=== PATIENT | female | born 1950 | race Caucasian/White ===

== ENCOUNTER 2016-11-06 18:40 | Inpatient (IN) | payer MEDICARE, BC ==
[~2016-11-06] VITALS: Ht 165.1 cm; Wt 66.0 kg
[~2016-11-06 18:40] MED LIST: ONDANSETRON HCL 4 MG/2 ML VIAL IV PUSH ONE; PROPOFOL 200 MG/20 ML AMP IV ONE; ePHEDrine/NS 50 MG/5 ML SYR IV ONE
[2016-11-06 18:41] VITALS: BP 144/67; PULSE 84; RESP 16; TEMP 98.1; O2SAT 98
[2016-11-06] MEDS ORDERED: GENTAMICIN SULFATE 80 MG/2 ML VIAL ONE (19:39)
--- NOTE | 2016-11-06 19:47 | PD ---
HPI Chief Complaint: Hip Injury Time Seen by Provider: 19:38 Travel History International Travel<30 days: No Contact w/Intl Traveler<30days: No Traveled to known affect area: No History of Present Illness HPI 65-year-old female presents after being sent by her orthopedist Dr. Granado for evaluation of a right hip fracture. The patient suffered a mechanical trip and fall 2 days ago and landed on her right hip. There is no other injury. Since then she has had soreness in her right hip which is worse with movement. She was seen by her orthopedist today, Dr. Granado, and she underwent x-ray imaging which apparently showed a proximal right femur fracture. Dr. Granado told her to come to the emergency room for preoperative preparation. The patient last had a meal at 1 PM today. She denies any significant past medical history. Her primary care physician is Dr. [place]. She has no other complaints at this time. PFS Past Medical History Medical History: Denies Significant Hx Social History Alcohol Use: No Tobacco Use: No Substance Use: No Allergies-Medications (Allergen,Severity, Reaction): Coded Allergies: Penicillin (Verified Allergy, Unknown, 11/06/16) Reported Meds & Prescriptions Reported Meds & Active Scripts Active No Active Prescriptions or Reported Medications Review of Systems Except as stated in HPI: all other systems reviewed are Neg Physical Exam Narrative GENERAL: Well-developed well-nourished female in no acute distress SKIN: Warm and dry. Orthopedic surgeons initials have been written on the right hip. HEAD: Atraumatic. Normocephalic. EYES: Pupils equal and round. No scleral icterus. No injection or drainage. ENT: No nasal bleeding or discharge. Mucous membranes pink and moist. CARDIOVASCULAR: Regular rate and rhythm. No murmur appreciated. RESPIRATORY: No accessory muscle use. Clear to auscultation. Breath sounds equal bilaterally. GASTROINTESTINAL: Abdomen soft, non-tender, nondistended. MUSCULOSKELETAL: No obvious deformities. The patient currently has both of her legs flexed at the knees. 2+ dorsalis pedis and posterior tibial pulses. NEUROLOGICAL: Awake and alert. No obvious cranial nerve deficits. Motor grossly within normal limits. Normal speech. Data Data Last Documented VS Vital Signs Date Time Temp Pulse Resp B/P Pulse Ox O2 Delivery O2 Flow Rate FiO2 11/06/16 18:41 98.1 84 16 144/67 98 Room Air Orders Gentamicin Inj (Gentamicin Inj) (11/06/16 19:39) Complete Blood Count With Diff (11/06/16 19:43) Basic Metabolic Panel (Bmp) (11/06/16 19:43) Act Partial Throm Time (Ptt) (11/06/16 19:43) Prothrombin Time / Inr (Pt) (11/06/16 19:43) Iv Access Insert/Monitor (11/06/16 19:43) Electrocardiogram (11/06/16 ) Admit Order (Ed Use Only) (11/06/16 20:24) Labs Laboratory Tests Test 11/06/16 20:05 White Blood Count 7.0 TH/MM3 Red Blood Count 4.42 MIL/MM3 Hemoglobin 14.4 GM/DL Hematocrit 41.7 % Mean Corpuscular Volume 94.4 FL Mean Corpuscular Hemoglobin 32.7 PG Mean Corpuscular Hemoglobin 34.6 % Concent Red Cell Distribution Width 12.8 % Platelet Count 206 TH/MM3 Mean Platelet Volume 7.9 FL Neutrophils (%) (Auto) 70.5 % Lymphocytes (%) (Auto) 19.7 % Monocytes (%) (Auto) 8.9 % Eosinophils (%) (Auto) 0.5 % Basophils (%) (Auto) 0.4 % Neutrophils # (Auto) 5.0 TH/MM3 Lymphocytes # (Auto) 1.4 TH/MM3 Monocytes # (Auto) 0.6 TH/MM3 Eosinophils # (Auto) 0.0 TH/MM3 Basophils # (Auto) 0.0 TH/MM3 CBC Comment DIFF FINAL Differential Comment Prothrombin Time 10.8 SEC Prothromb Time International 1.0 RATIO Ratio Activated Partial 25.9 SEC Thromboplast Time Sodium Level 139 MEQ/L Potassium Level 3.6 MEQ/L Chloride Level 102 MEQ/L Carbon Dioxide Level 27.4 MEQ/L Anion Gap 10 MEQ/L Blood Urea Nitrogen 18 MG/DL Creatinine 0.85 MG/DL Estimat Glomerular Filtration 67 ML/MIN Rate Random Glucose 91 MG/DL Calcium Level 9.1 MG/DL [facility] Medical Decision Making Medical Screen Exam Complete: Yes Emergency Medical Condition: Yes Medical Record Reviewed: Yes Differential Diagnosis Right hip fracture, dislocation, pubic rami fracture Narrative Course I attempted to call Dr. Granado's cell phone however it had a "do not disturb" function installed. Therefore he will be paged. 2025: Unable to get in contact with Dr. Granado, OR technicians are currently taking the patient to the OR. Therefore the decision was made to admit the patient to the hospitalist group at least for observation, discussed with Dr. Oliveira who is agreeable. The patient is declining any pain medication at this time. Diagnosis Primary Impression: Closed right hip fracture Qualified Code: S72.001A - Closed right hip fracture, initial encounter Admitting Information Admitting Physician Requests: Observation Scripts No Active Prescriptions or Reported Meds Mark Ramirez Nov 06, 2016 19:47
[2016-11-06] MEDS ORDERED: SODIUM CHLORIDE 0.9% FLUSH 5 ML FLUSH FLUSH PRN (20:30)
[2016-11-06] MEDS ORDERED: HYDROmorphone HCL PF 1 MG/ML VIAL IV PUSH PRN (20:30)
[2016-11-06] MEDS ORDERED: NALOXONE HCL 0.4 MG/ML AMP IV PRN ×2 (20:30→21:00)
[2016-11-06] MEDS ORDERED: ONDANSETRON HCL 4 MG/2 ML VIAL IVP PRN ×2 (20:30→21:00)
[2016-11-06] MEDS ORDERED: HYDROmorphone HCL PF 2 MG/ML VIAL ONE (20:36)
[2016-11-06] MEDS ORDERED: MIDAZOLAM HCL 2 MG/2 ML VIAL ONE (20:36)
[2016-11-06] MEDS ORDERED: ceFAZolin 2 GM PREMIX 50 ML ONE (20:39)
[2016-11-06 20:42] LABS: BASOPHIL % 0.4 % (0.0-2.0); EOSINOPHIL % 0.5 % (0.0-4.0); HEMATOCRIT 41.7 % (35.0-46.0); HEMO FLAGS DIFF FINAL; LYMPH % 19.7 % (9.0-44.0); LYMPHOCYTE # 1.4 TH/MM3 (1.0-4.8); MEAN CELL VOLUME 94.4 FL (80.0-100.0); MEAN CORPUSCULAR HEMOGLOBIN 32.7 PG (27.0-34.0); MEAN CORPUSCULAR HGB CONC 34.6 % (32.0-36.0); MONO % 8.9 % (0.0-8.0); NEUT % 70.5 % (16.0-70.0); PLATELET COUNT 206 TH/MM3 (150-450); RED BLOOD COUNT 4.42 MIL/MM3 (4.00-5.30); RED CELL DISTRIBUTION WIDTH 12.8 % (11.6-17.2)
[2016-11-06 20:49] LABS: APTT (PATIENT) 25.9 SEC (24.3-30.1); PROTHROMBIN TIME - PATIENT 10.8 SEC (9.8-11.6)
[2016-11-06] MEDS: DOCUSATE SODIUM 50 MG/SENNA 8.6 MG TAB PO SCH (21:00)
[2016-11-06] MEDS ORDERED: Post-op Orders (for Pharmacy) MISC XX ONE (21:00)
[2016-11-06] MEDS ORDERED: MAGNESIUM HYDROXIDE SUSP 30 ML CUP PO PRN (21:00)
[2016-11-06] MEDS ORDERED: SODIUM CHLORIDE 0.9% FLUSH 5 ML FLUSH IVF PRN (21:00)
[2016-11-06] MEDS ORDERED: MISCELLANEOUS NURSING INFORMATION XX PRN (21:00)
[2016-11-06] MEDS: SODIUM CHLORIDE 0.9% FLUSH 5 ML FLUSH IVF SCH (21:00)
[2016-11-06] MEDS ORDERED: diphenhydrAMINE HCL 25 MG CAP PO PRN (21:00)
[2016-11-06] MEDS ORDERED: ACETAMINOPHEN/HYDROcodone 325 MG/5 MG TAB PO PRN ×2 (21:00)
[2016-11-06] MEDS ORDERED: SODIUM CHLORIDE 0.9% FLUSH 5 ML FLUSH FLUSH SCH (21:00)
[2016-11-06 21:02] LABS: BICARBONATE 27.4 MEQ/L (21.0-32.0); POTASSIUM 3.6 MEQ/L (3.5-5.1)
--- NOTE | 2016-11-06 21:14 | MH ---
cc: ELA SNOW DATE OF ADMISSION 11/06/2016 ADMISSION DIAGNOSIS Right hip femoral neck fracture. PLANNED PROCEDURE Right hip surgical repair. HISTORY OF PRESENT ILLNESS Suzie Lunsford is a 65-year-old female who sustained a slip and fall in her home two days ago. She had very significant difficulty ambulating on her right hip and, therefore, used a walker but with significant symptomatology presented to the office today where x-rays revealed a valgus impacted femoral neck fracture. She denied other injuries. Denied loss of consciousness, denied chest pain. She actually had been getting around the house with the use of a walker and doing reasonably well. PAST MEDICAL HISTORY Denies active medical problem. She does have some difficulty with balance but has worked on this through participating in regular ballet type endeavors to increase her overall balance capabilities. SOCIAL HISTORY Negative for alcohol, tobacco and substance abuse. MEDICATIONS No regular medications ALLERGIES PENICILLIN PHYSICAL EXAMINATION GENERAL: Alert, oriented, appropriate. HEENT: Head atraumatic, normocephalic. Extraocular muscles intact, mucous membranes pink and moist. NECK: Supple, no masses LUNGS: Clear to auscultation bilaterally. HEART: Regular rate and rhythm without murmur. ABDOMEN: Soft, nontender, nondistended. Positive bowel sounds. EXTREMITIES: Significant for pain about the right proximal femur and pain with range of motion of the hip. Her calf is soft. Distal pulses intact. NEUROLOGIC: Distal motor sensory neurologic emanation intact. IMAGING STUDIES X-rays from the office revealed a valgus impacted right femoral neck fracture. ASSESSMENT Right hip valgus impacted right femoral neck fracture. MEDICAL DECISION MAKING Her condition was discussed, options of treatment were discussed. Recommendation is surgical repair of the right hip. Alternatives of treatment trying to treat this nonoperatively was seriously considered by the patient and the undersigned, but it is believed by stabilizing the fracture it should improve her overall outcome and overall function of this hip and decrease the chance of significant displacement. Long-term there is still a risk of avascular necrosis. She understands that there is a possibility of issues with the hardware and need for hardware removal. She understands with surgery there is risk of infection, nerve damage, blood vessel damage, anesthetic complications, medical complication, unforeseen possible complications. All of her questions were answered. Detailed informed consent was obtained. MD SALVADOR Pickens/ /8:56 PM /9:03 PM
[2016-11-06] MEDS ORDERED: MEPERIDINE HCL 25 MG/ML VIAL ONE (22:04)
--- NOTE | 2016-11-06 22:12 | RADRPT ---
EXAM DATE/TIME: 11/06/2016 21:35 [place] COMPARISON: No previous studies available for comparison. INDICATIONS : Right hip pinning. MEDICAL HISTORY : None. SURGICAL HISTORY : None. ENCOUNTER: Initial ACUITY: 1 day PAIN SCORE: Non-responsive. LOCATION: Right Hip CONCLUSION: Fluoroscopic images during placement of 3 compression screws through the right hip.. Juan Carlos Sherwood MD on November 06, 2016 at 22:10 Board Certified Radiologist. This report was verified electronically.
--- NOTE | 2016-11-06 22:27 | MP ---
cc: ELA GRANADO DATE OF SURGERY 11/06/2016 PREOPERATIVE DIAGNOSIS Right hip impacted valgus femoral neck fracture. POSTOPERATIVE DIAGNOSIS Right hip impacted valgus femoral neck fracture. PROCEDURE Right hip percutaneous pinning using Synthes large 7.3 cannulated screws ANESTHESIA General SURGEON Benton Granado MD [employer] ADVISOR SURGEON None. COMPLICATIONS None known. INDICATION Suzie Lunsford is a 65-year-old female who sustained a fall in her house 2 days ago. She presented to the office today and was found to have a valgus impacted right femoral neck fracture. The options of treatment were thoroughly discussed. She was indicated for surgical repair. Risks, benefits and regards to surgical repair are reviewed. A detailed informed consent was obtained. PROCEDURE IN DETAIL The patient was brought to the operating room. She was placed under general anesthetic. The right hip was draped and prepped in usual sterile fashion. IV antibiotics were given. Time-out was completed. We used fluoroscopy to help plan our incision and then made our lateral based incision, guide pin through the lateral cortex. The pin advanced across the cortex and metaphysis and into the femoral neck and femoral head in good position in both AP and lateral plane. We then proceeded to place two additional screws through two separate small incisions, all three screws being confirmed radiographically. We then proceeded to drill and measure and place out cannulated screws. Traction was placed off the leg and the screws were tightened with traction off the leg. The overall alignment looked very good. It remained in valgus impacted position. It should when we first placed her on the fracture table, we did slightly internally rotate at the femoral neck which was slightly leaning in one direction. We also adducted and placed traction, but the fracture did not significantly disimpact or change alignment. All the traction had been removed. All the screws had been tightened. Final x-rays AP and lateral showed final result. We irrigated out with copious amounts of irrigation, closed with absorbable suture. Steri-Strips applied. Sterile dressing applied. The patient was awaken and returned to the recovery room in stable condition. MD SALVADOR Pickens/ /10:12 PM /10:20 PM
[2016-11-06] MEDS ORDERED: DO NOT ADM ANY ANTICOAGULANT DRUGS XX PRN (22:30)
[2016-11-06] MEDS: DEXT 5%-NACL 0.45% 1000 ML INJ 1,000 ML IV SCH (22:45)
[2016-11-06] MEDS: HYDROmorphone HCL PCA 6 MG/30 ML IV SCH (22:48)
[2016-11-06] MEDS: PCA - TOTAL MG DILAUDID DELIVERED PER SHIFT OTHER SCH (22:50)
[2016-11-06] MEDS ORDERED: MORPHINE SULFATE 4 MG/ML INJ ONE (22:54)
[2016-11-06 23:45] VITALS: BP 155/68; PULSE 68; RESP 20; TEMP 96.9; O2SAT 100
[2016-11-07] VITALS (8 sets, daily range): BP systolic 113–130; BP diastolic 58–63; PULSE 69–83; RESP 17–20; TEMP 97.8–98.6; O2SAT 97–99
[2016-11-07 04:35] LABS: AUTOMATED NEUTROPHIL # 4.1 TH/MM3 (1.8-7.7); BASOPHIL % 0.4 % (0.0-2.0); EOSINOPHIL # 0.1 TH/MM3 (0-0.4); HEMO FLAGS DIFF FINAL; LYMPHOCYTE # 1.6 TH/MM3 (1.0-4.8); MEAN CORPUSCULAR HEMOGLOBIN 32.4 PG (27.0-34.0); MEAN CORPUSCULAR HGB CONC 34.1 % (32.0-36.0); MONO % 11.3 % (0.0-8.0); NEUT % 62.3 % (16.0-70.0); PLATELET COUNT 193 TH/MM3 (150-450); RED CELL DISTRIBUTION WIDTH 12.9 % (11.6-17.2); WHITE BLOOD COUNT 6.6 TH/MM3 (4.0-11.0)
[2016-11-07 04:57] LABS: BICARBONATE 28.1 MEQ/L (21.0-32.0); POTASSIUM 3.8 MEQ/L (3.5-5.1)
[2016-11-07] MEDS: PCA - TOTAL MG DILAUDID DELIVERED PER SHIFT OTHER SCH ×3 (05:09→21:30)
[2016-11-07] MEDS: DEXT 5%-NACL 0.45% 1000 ML INJ 1,000 ML IV SCH ×2 (05:13→15:09)
[2016-11-07] MEDS: DOCUSATE SODIUM 50 MG/SENNA 8.6 MG TAB PO SCH ×2 (08:52→21:00)
[2016-11-07] MEDS: SODIUM CHLORIDE 0.9% FLUSH 5 ML FLUSH IVF SCH ×2 (08:53→21:00)
--- NOTE | 2016-11-07 10:45 | EKG ---
Date Performed: 11/06/2016 Time Performed: 19:59:38 PTAGE: 65 years EKG: Sinus rhythm POSSIBLE LEFT ATRIAL ENLARGEMENT POSSIBLE RIGHT VENTRICULAR CONDUCTION DELAY BORDERLINE ECG NO PREVIOUS TRACING DOCTOR: Neftali Sotomayor Interpretating Date/Time 11/07/2016 10:43:55
--- NOTE | 2016-11-07 13:44 | PD.ORT.PN ---
Subjective Subjective Remarks Patient comfortable. Pain controlled. Objective Vitals Vital Signs Date Time Temp Pulse Resp B/P Pulse Ox O2 Delivery O2 Flow Rate FiO2 11/07/16 12:00 98.3 77 17 115/63 98 11/07/16 08:02 71 11/07/16 08:00 97.8 73 17 113/58 98 11/07/16 05:09 18 11/07/16 04:00 98.6 69 20 130/60 99 11/07/16 00:29 18 11/07/16 00:18 71 11/06/16 23:45 96.9 68 20 155/68 100 11/06/16 23:15 59 16 149/70 100 Nasal Cannula 2 11/06/16 23:00 64 16 135/75 100 Nasal Cannula 2 11/06/16 22:50 16 11/06/16 22:48 16 11/06/16 22:45 59 14 150/78 100 Nasal Cannula 2 11/06/16 22:30 66 14 140/84 100 Nasal Cannula 2 11/06/16 22:15 67 16 148/75 100 Nasal Cannula 2 11/06/16 21:59 97.7 89 20 154/72 97 Nasal Cannula 2 11/06/16 18:41 98.1 84 16 144/67 98 Room Air I/O 11/06/16 11/06/16 11/06/16 11/07/16 11/07/16 11/07/16 07:00 15:00 23:00 07:00 15:00 23:00 Intake Total 800 ml 1083 ml 317 ml Output Total 225 ml 325 ml Balance 575 ml 758 ml 317 ml Intake Oral 240 ml IV Total 843 ml 317 ml Other 800 ml Output Urine Total 325 ml Estimated Blood Loss 75 ml Other 150 ml # Bowel Movements 0 Result Diagram: 11/07/16 0357 11/07/16 0357 Other Results Laboratory Tests Test 11/06/16 20:05 Prothrombin Time 10.8 SEC (9.8-11.6) Prothromb Time International 1.0 RATIO Ratio Procedures ORIF Right Hip Cannulated Screws Objective Remarks Right hip dressing C/D/I calves soft negative Homans NVI Assessment & Plan Ortho Post Op Day #: 1 Problem List: Assessment and Plan Pain management - GRILL CHEF and Percocet DVT prophylaxis - Lovenox (while in the hospital) Once discharged, instructed to take Aspirin 325 mg PO for 30 days. Physical therapy - 50% weight bearing No touch dressing Continue with standard meds D/C planning - anticipating home [facility] Friday Dr. Granado spoke and evaluated patient. Driss Stewart Nov 07, 2016 13:44
[2016-11-07] MEDS ORDERED: HYDR-3516 PO (13:50)
--- NOTE | 2016-11-07 13:53 | HHI.FF ---
Face to Face Verification Diagnosis: (1) Fracture of femoral neck, right, closed Physical Therapy Gait training, Safety evaluation Hip: Hip fracture, Protocol: Right Right LE Weight Bearing: Partial WB 50% Right LE Range of Motion: Active ROM Left LE Weight Bearing: WB as tolerated Left LE Range of Motion: Active ROM Nursing Dressing Changes: Do not change dressing I have seen patient Suzie Lunsford on 11/07/16. My clinical findings support the need for the requested home health care services because: High risk of falls I certify that my clinical findings support that this patient is homebound because: Post-op weakness Driss Stewart Nov 07, 2016 13:53
[2016-11-07] MEDS ORDERED: WALKER WHEELS/F1 MIS (13:55)
[2016-11-07] MEDS ORDERED: ENOXAPARIN SODIUM 40 MG/0.4 ML SYRINGE SQ SCH (21:00)
[2016-11-08] VITALS: BP 130/67; PULSE 69; RESP 18; TEMP 99.5; O2SAT 97
[2016-11-08 04:00] VITALS: BP 128/59; PULSE 77; RESP 18; TEMP 98.9; O2SAT 96
[2016-11-08] MEDS: HYDROmorphone HCL PCA 6 MG/30 ML IV SCH (04:35)
[2016-11-08] MEDS: PCA - TOTAL MG DILAUDID DELIVERED PER SHIFT OTHER SCH (04:37)
[2016-11-08] MEDS: DEXT 5%-NACL 0.45% 1000 ML INJ 1,000 ML IV SCH (04:37)
--- NOTE | 2016-11-08 07:41 | PD.ORT.PN ---
Subjective Subjective Remarks Mild nausea and headache Hip pain controlled Objective Vitals Vital Signs Date Time Temp Pulse Resp B/P Pulse Ox O2 Delivery O2 Flow Rate FiO2 11/08/16 05:05 12 11/08/16 04:37 12 11/08/16 04:35 12 11/08/16 04:00 98.9 77 18 128/59 96 11/08/16 00:00 99.5 69 18 130/67 97 11/07/16 21:30 12 11/07/16 20:00 97.9 77 18 129/59 97 11/07/16 19:58 83 11/07/16 15:35 98 Nasal Cannula 2.00 11/07/16 14:00 18 11/07/16 12:00 98.3 77 17 115/63 98 11/07/16 08:02 71 11/07/16 08:00 97.8 73 17 113/58 98 I/O 11/07/16 11/07/16 11/07/16 11/08/16 11/08/16 11/08/16 07:00 15:00 23:00 07:00 15:00 23:00 Intake Total 1083 ml 557 ml 965 ml 532 ml Output Total 325 ml 1100 ml 500 ml 300 ml Balance 758 ml -543 ml 465 ml 232 ml Intake Oral 240 ml 240 ml 320 ml 320 ml IV Total 843 ml 317 ml 645 ml 212 ml Output Urine Total 325 ml 1100 ml 500 ml 300 ml # Bowel Movements 0 0 0 0 Result Diagram: 11/07/167 11/07/16 0357 Procedures ORIF Right Hip Cannulated Screws Objective Remarks Right hip dressing C/D/I calves soft negative Homans NVI Assessment & Plan Problem List: (1) Fracture of femoral neck, right, closed Assessment and Plan Pain management - D/C BELL SPINNER SOUSAPHONES and Percocet and tylenol for headache Aspirin 325 mg PO for 30 days. Physical therapy - 50% weight bearing No touch dressing Continue with standard meds D/C home with [facility] today David Granado MD Nov 08, 2016 07:41
[2016-11-08] MEDS ORDERED: ACETAMINOPHEN 500 MG CPLT PO ONE (07:45)
[2016-11-08 07:59] VITALS: PULSE 63
[2016-11-08 08:00] VITALS: BP 143/72; PULSE 77; RESP 16; TEMP 96.3; O2SAT 97
[2016-11-08] MEDS: DOCUSATE SODIUM 50 MG/SENNA 8.6 MG TAB PO SCH (08:05)
[2016-11-08] MEDS: SODIUM CHLORIDE 0.9% FLUSH 5 ML FLUSH IVF SCH (08:05)
[2016-11-08] MEDS ORDERED: ASPI325T PO (08:47)
--- NOTE | 2016-11-21 09:43 | MD ---
cc: ELA SNOW M.D. ADMISSION DATE: 11/06/2016 DISCHARGE DATE: 11/08/2016 ADMISSION DIAGNOSIS Right hip impacted valgus femoral neck fracture. PROCEDURE Right hip percutaneous pinning. HISTORY The patient is a 65-year-old female who sustained a fall inside of her house approximately two days ago. She presented to the office today and found that she has a valgus impacted right femoral neck fracture. The options of treatment were thoroughly discussed and she is indicated for surgical repair. She came in through the emergency department and had preoperative clearance. Surgical consent was signed. Underwent surgery without complication. She was maintained on 23 hours IV antibiotics. She was initiated with DVT prophylaxis. Medical consultation was obtained. Physical therapy consultation was obtained. She was transitioned from IV to p.o. pain medication. She did well during her hospitalization. Did not have complications. On postop day #2 she was discharged. Labs and vital signs remained stable. She was discharged home with home health care for continuation of rehabilitation. She was to continue on her standard medication as well as prescription for Percocet for pain management and Lovenox for DVT prophylaxis. Continue on standard regular diet with follow up scheduled the office in two weeks. Dictated by CARMEN Weaver MD SALVADOR Pickens/KK /7:45 AM /9:39 AM
== END 2016-11-08 11:41 | disposition home health service (06) | DRG 482 ==
LOC: HOR 18:40 → NEDA 20:26 → HPAC 20:30 → OBSVTOIN 23:19 → N07B 23:33
PROVIDERS: ADMIT Orthopaedic Surgery Sports Medicine; ATTEND Orthopaedic Surgery Sports Medicine
PROC: 0QS6XZZ Reposition Right Upper Femur, External Approach (ICD-10-PCS; 2016-11-06)
PROC: 0QH634Z Insertion of Internal Fixation Device into Right Upper Femur, Percutaneous Approach (ICD-10-PCS; principal; 2016-11-06 20:41)
DX: S72.001A Fracture of unspecified part of neck of right femur, initial encounter for closed fracture (principal); W01.0XXA Fall on same level from slipping, tripping and stumbling without subsequent striking against object, initial encounter; Y92.009 Unspecified place in unspecified non-institutional (private) residence as the place of occurrence of the external cause
CPT/HCPCS: 73502; 76000; 80048; 85025; 85610; 85730; 93005; 94150; C1713; C1769; J0690; J1170; J1580; J1650; J2175; J2250; J2270; J2405; J3010

== ENCOUNTER → 2017-06-26 | Outpatient (CLI) | payer MEDICARE, BC ==
[~2017-06-26] MED LIST changes: +ASPI325T PO; +HYDR-3516 PO; -ONDANSETRON HCL 4 MG/2 ML VIAL IV PUSH ONE; -PROPOFOL 200 MG/20 ML AMP IV ONE; +WALKER WHEELS/F1 MIS; -ePHEDrine/NS 50 MG/5 ML SYR IV ONE
[2017-06-26 09:27] LABS: AUTOMATED NEUTROPHIL # 3.1 TH/MM3 (1.8-7.7); BASOPHIL % 0.8 % (0.0-2.0); EOSINOPHIL # 0.1 TH/MM3 (0-0.4); HEMATOCRIT 41.7 % (35.0-46.0); HEMO FLAGS DIFF FINAL; LYMPHOCYTE # 1.5 TH/MM3 (1.0-4.8); MEAN CELL VOLUME 97.5 FL (80.0-100.0); MEAN CORPUSCULAR HEMOGLOBIN 32.6 PG (27.0-34.0); MEAN CORPUSCULAR HGB CONC 33.5 % (32.0-36.0); MONO % 9.2 % (0.0-8.0); PLATELET COUNT 243 TH/MM3 (150-450); RED BLOOD COUNT 4.28 MIL/MM3 (4.00-5.30); RED CELL DISTRIBUTION WIDTH 13.4 % (11.6-17.2); WHITE BLOOD COUNT 5.2 TH/MM3 (4.0-11.0)
[2017-06-26 09:47] LABS: BICARBONATE 29.7 MEQ/L (21.0-32.0); POTASSIUM 3.9 MEQ/L (3.5-5.1)
[2017-06-26 09:59] LABS: HDL CHOLESTEROL 69.7 MG/DL (40.0-60.0); INDIRECT BILIRUBIN 0.6 MG/DL (0.0-0.8); TOTAL BILIRUBIN ADULT 0.7 MG/DL (0.2-1.0)
== END ==
LOC: CLAB 08:52
PROVIDERS: ATTEND Family Medicine
DX: R26.9 Unspecified abnormalities of gait and mobility (principal); R53.83 Other fatigue; E78.5 Hyperlipidemia, unspecified; M85.80 Other specified disorders of bone density and structure, unspecified site; M81.0 Age-related osteoporosis without current pathological fracture
CPT/HCPCS: 36415; 80048; 80061; 80076; 84443; 85025

== ENCOUNTER → 2018-03-06 | Outpatient (CLI) | payer MEDICARE, BC ==
[~2018-03-06] MED LIST changes: +ASPI-183 PO; -ASPI325T PO
[2018-03-06 10:38] LABS: AUTOMATED NEUTROPHIL # 3.3 TH/MM3 (1.8-7.7); BASOPHIL # 0.1 TH/MM3 (0-0.2); BASOPHIL % 1.1 % (0.0-2.0); EOSINOPHIL # 0.1 TH/MM3 (0-0.4); EOSINOPHIL % 1.2 % (0.0-4.0); HEMATOCRIT 42.2 % (35.0-46.0); HEMOGLOBIN 14.2 GM/DL (11.6-15.3); LYMPH % 22.5 % (9.0-44.0); LYMPHOCYTE # 1.1 TH/MM3 (1.0-4.8); MEAN CELL VOLUME 97.2 FL (80.0-100.0); MEAN CORPUSCULAR HEMOGLOBIN 32.7 PG (27.0-34.0); MEAN CORPUSCULAR HGB CONC 33.6 % (32.0-36.0); MEAN PLATELET VOLUME 8.6 FL (7.0-11.0); MONO % 9.4 % (0.0-8.0); MONOCYTE # 0.5 TH/MM3 (0-0.9); NEUT % 65.8 % (16.0-70.0); PLATELET COUNT 236 TH/MM3 (150-450); RED BLOOD COUNT 4.34 MIL/MM3 (4.00-5.30); RED CELL DISTRIBUTION WIDTH 13.2 % (11.6-17.2)
[2018-03-06 11:11] LABS: AST (GOT) 19 U/L (15-37); BICARBONATE 28.7 MEQ/L (21.0-32.0); BLOOD UREA NITROGEN 19 MG/DL (7-18); CALCIUM 9.3 MG/DL (8.5-10.1); CHLORIDE 105 MEQ/L (98-107); CREATININE 0.78 MG/DL (0.50-1.00); GLOMERULAR FILTRATION RATE 73 ML/MIN (>89); SODIUM (NA) 141 MEQ/L (136-145)
[2018-03-06 11:16] LABS: ALT (GPT) 18 U/L (10-53); GLUCOSE,FASTING 97 MG/DL (74-99)
[2018-03-06 11:24] LABS: ALKALINE PHOSPHATASE 89 U/L (45-117); FREE T4 0.88 NG/DL (0.76-1.46); TOTAL BILIRUBIN ADULT 0.7 MG/DL (0.2-1.0); TOTAL PROTEIN 7.2 GM/DL (6.4-8.2)
== END ==
LOC: CLAB 09:50
DX: L65.9 Nonscarring hair loss, unspecified (principal)
CPT/HCPCS: 36415; 80053; 84439; 84443; 85025; 86038